=== PATIENT | male | born 1960 | race Caucasian/White ===

== ENCOUNTER 2019-02-04 05:06 | Inpatient (IN) | payer BC, OTHER ==
[~2019-02-04] VITALS: Ht 172.7 cm; Wt 110.6 kg
[2019-02-04] MEDS ORDERED: ACETAMINOPHEN 500 MG TAB PO ONE (05:15)
[2019-02-04 05:38] LABS: Basophils # (auto) 0.1 uL; Basophils % (auto) 1.1 % (0.0-2.0); Eosinophils # (auto) 0 uL; Eosinophils % (auto) 0.3 % (0.0-7.0); Hematocrit 44.5 % (41.0-53.0); Hemoglobin 15.5 g/dL (13.5-17.5); Lymphocytes # (auto) 0.4 uL; Lymphocytes % (auto) 8.5 % (10.0-50.0); Mean Corpuscular Hemoglobin 32.7 pg (28.0-32.0); Mean Corpuscular Hgb Conc. 34.7 g/dL (32.0-36.0); Mean Corpuscular Volume 94.2 fL (80.0-100.0); Monocytes # (auto) 0.1 uL; Monocytes % (auto) 1.1 % (0.0-12.0); Neutrophils # (auto) 4.5 uL; Nucleated Red Blood Cells % 0.1 %; Platelet Count (auto) 263 10^3/uL (140-450); Red Blood Cells 4.72 10^6/uL (4.5-5.90); Red Cell Distribution Width 13.3 % (11.8-14.3); White Blood Cell 5.1 10^3/uL (4.4-10.8)
[2019-02-04 05:51] LABS: Alanine Aminotransferase 27 U/L (16-61); Albumin 3.9 g/dL (3.4-5.0); Anion Gap 13 (5-15); Aspartate Aminotransferase 16 U/L (15-37); BUN/Creatinine Ratio 11.9; Blood Urea Nitrogen 19 mg/dL (7-18); Calcium 9.1 mg/dL (8.5-10.1); Carbon Dioxide 23 mmol/L (21-32); Chloride 100 mmol/L (98-107); GFR African American 57 mL/min; GFR Non-African American 47 mL/min; Glucose 122 mg/dL (74-106); Lipase 142 U/L (73-393); Potassium 3.3 mmol/L (3.5-5.1); Sodium 136 mmol/L (136-145)
[2019-02-04 05:57] LABS: Alkaline Phosphatase 101 U/L (45-117); Bilirubin, Total 1.5 mg/dL (0.2-1.0); Total Protein 7.8 g/dL (6.4-8.2)
[2019-02-04 05:59] LABS: INR 0.92 (0.9-1.15); Partial Thromboplastin Time 20.7 sec (23.64-32.05)
[2019-02-04] MEDS ORDERED: SODIUM CHLORIDE 0.9% 1,000 ML IVB ONE (06:25)
[2019-02-04] MEDS ORDERED: PROMETHAZINE HCL 25 MG/ML 1ML IV PRN (06:30)
[2019-02-04] MEDS ORDERED: HYDROmorphone HCL 2 MG/ML VL IV ONE ×2 (06:30→14:45)
[2019-02-04] MEDS ORDERED: cefTRIAXone 1GM/50ML D5W 50 ML IV ONE (06:30)
[2019-02-04] MEDS ORDERED: PROMETHAZINE HCL 25 MG/ML 1ML ONE (06:32)
[2019-02-04] MEDS ORDERED: ceFAZolin 1GM/50ML 50 ML IV ONE (11:08)
[2019-02-04] MEDS ORDERED: POVIDONE IODINE 10 % TOPICAL OINT 30GM TOP ONE (11:51)
[2019-02-04] MEDS ORDERED: SUCCINYLCHOLINE CHLORIDE 20 MG/ML 10ML VIAL IV ONE (11:53)
[2019-02-04] MEDS ORDERED: MEPERIDINE HCL (25 MG/ML) 1ML VIAL ONE (11:55)
[2019-02-04] MEDS ORDERED: fentaNYL CITRATE 100 MCG/2 ML VL ONE (11:55)
[2019-02-04] MEDS ORDERED: MIDAZOLAM HCL 1MG/1ML-2 ML VIAL ONE (11:55)
[2019-02-04] MEDS ORDERED: KETOROLAC TROMETH 60MG/2ML VIAL ONE (12:29)
[2019-02-04] MEDS ORDERED: DexAMETHasone SOD PHOS 10MG/1ML VIAL INJ ONE (12:29)
[2019-02-04] MEDS ORDERED: GLYCOPYRROLATE 0.2 MG/ML 1ML VIAL ONE (12:29)
[2019-02-04] MEDS ORDERED: NEOSTIGMINE 1 MG/ML INJ (10mg/10ML VIAL) ONE (12:29)
[2019-02-04] MEDS ORDERED: PROPOFOL 10 MG/ML 20 ML IV ONE (12:29)
[2019-02-04] MEDS ORDERED: LABETALOL HCL 5 MG/ML 4ML SYRINGE IV PRN (12:30)
[2019-02-04] MEDS ORDERED: KETOROLAC TROMETH 30 MG/ML 1ML VIAL IV ONE (12:30)
[2019-02-04] MEDS ORDERED: ePHEDrine SULFATE 50 MG/ML AMP IV PRN (12:30)
[2019-02-04] MEDS ORDERED: MORPHINE SULFATE 4 MG/ML SYR/VIAL IV PRN (12:30)
[2019-02-04] MEDS ORDERED: HYDROmorphone HCL 2 MG/ML VL IV PRN (12:30)
[2019-02-04] MEDS ORDERED: ONDANSETRON HCL 4 MG/2 ML VIAL IV ONE (12:30)
[2019-02-04] MEDS ORDERED: MIDAZOLAM HCL 1MG/1ML-2 ML VIAL IV PRN (12:30)
[2019-02-04] MEDS ORDERED: PHENYLEPHRINE HCL 10 MG/ML VL ONE (12:47)
[2019-02-04] MEDS ORDERED: MORPHINE SULFATE 4 MG/ML SYR/VIAL IV ONE (14:00)
[2019-02-04] MEDS ORDERED: D5W/SOD CHL 0.45%/KCL 20MEQ 1,000 ML IV ONE (14:45)
[2019-02-04 16:00] VITALS: BP 96/88
--- NOTE | 2019-02-04 16:00 | NUR ---
MS admit from OR S/P LAPARASCOPIC APPENDECTOMY DEJA RAMOS admitted to MS after SBAR received. Patient oriented to SONAL KELLER, primary RN, unit, room, bed, and unit policies regarding patient care and visiting hours. Patient weighed by bed scale and encouraged to call if they need something. All questions and concerns addressed, patient verbalized understanding.
[2019-02-04 16:04] VITALS: BP 96/68
[2019-02-04] MEDS ORDERED: TRIA75TA55 PO (16:12)
[2019-02-04] MEDS ORDERED: LOSA-49 PO (16:12)
--- NOTE | 2019-02-04 17:00 | NUR ---
Dr. Cruz at bedside.
[2019-02-04] MEDS: ONDANSETRON HCL 4 MG/2 ML VIAL IV SCH ×2 (18:00→22:47)
[2019-02-04] MEDS: D5W/SOD CHL 0.45%/KCL 20MEQ 1,000 ML IV SCH (18:19)
--- NOTE | 2019-02-04 19:49 | NUR ---
OPENING NOTES REPORT RECEIVED BY DAYSHIFT NURSE. PT IS A/OX4 WITH NO S/S OF DISTRESS NOR PAIN. NO S/S OF SOB. PT HAS 3 INCISION MIDLINE OF ABDOMEN, DRESSING IS CLEAN, DRY, AND INTACT. ABDOMEN BINDER IN PLACE.1 ITALO DRAIN BED DRAINING SEROSANGUINEOUS FLUID. BRAKES ARE LOCKED AND BED IS IN LOWEST POSITION. CALL LIGHT IS WITH IN REACH AND SIDE RAILS ARE UP X2. HOB IS 30 DEGREES. DISCUSSED POC WITH PATIENT AND PT VERBALIZED UNDERSTANDING.
[2019-02-04] MEDS: HYDROcodone-ACET 5/325MG TAB PO PRN (20:55)
[2019-02-04] MEDS: ceFAZolin 1GM/50ML 50 ML IV SCH (20:55)
[2019-02-04 22:00] VITALS: BP 100/71
[2019-02-04] MEDS: metroNIDAZOLE 500MG/100ML 100 ML IV SCH (22:47)
[2019-02-04] MEDS: MORPHINE SULF INJ 2 MG/ML SYRINGE 1ML IV PRN (22:48)
[2019-02-05] MEDS: ONDANSETRON HCL 4 MG/2 ML VIAL IV SCH ×6 (01:39→22:00)
--- NOTE | 2019-02-05 03:00 | NUR ---
IV FLUIDS IV FLUIDS SCHEDULED FOR 0300 WILL BE DELAYED DUE TO PRIOR BAG NOT FINISHED INFUSING. WILL COMMENCE SOON CURRENT BAG FINISHES INFUSING.
[2019-02-05] MEDS: ceFAZolin 1GM/50ML 50 ML IV SCH ×3 (04:56→21:24)
[2019-02-05] MEDS: D5W/SOD CHL 0.45%/KCL 20MEQ 1,000 ML IV SCH ×2 (04:56→13:00)
[2019-02-05 05:00] VITALS: BP 100/59
--- NOTE | 2019-02-05 05:03 | NUR ---
URINE SAMPLE URINE SAMPLE SENT TO LAB.
[2019-02-05 05:41] LABS: Urine Bacteria NONE SEEN /hpf (None Seen); Urine Blood Negative /uL (Negative); Urine Specific Gravity 1.022 (1.001-1.035); Urine WBC 1 /hpf (0 - 3)
[2019-02-05] MEDS: metroNIDAZOLE 500MG/100ML 100 ML IV SCH ×3 (06:01→22:09)
[2019-02-05] MEDS: MORPHINE SULF INJ 2 MG/ML SYRINGE 1ML IV PRN ×2 (06:39→22:09)
[2019-02-05 06:50] LABS: Basophils # (auto) 0 uL; Basophils % (auto) 0.1 % (0.0-2.0); Eosinophils # (auto) 0 uL; Hematocrit 36.6 % (41.0-53.0); Hemoglobin 12.5 g/dL (13.5-17.5); Lymphocytes # (auto) 0.7 uL; Lymphocytes % (auto) 4.6 % (10.0-50.0); Mean Corpuscular Hemoglobin 32.6 pg (28.0-32.0); Mean Corpuscular Hgb Conc. 34.1 g/dL (32.0-36.0); Mean Corpuscular Volume 95.4 fL (80.0-100.0); Monocytes # (auto) 0.9 uL; Monocytes % (auto) 6.1 % (0.0-12.0); Neutrophils # (auto) 13.8 uL; Neutrophils % (auto) 89.2 % (37.0-80.0); Platelet Count (auto) 205 10^3/uL (140-450); Red Blood Cells 3.84 10^6/uL (4.5-5.90); Red Cell Distribution Width 13.1 % (11.8-14.3); White Blood Cell 15.4 10^3/uL (4.4-10.8)
[2019-02-05 07:07] LABS: Albumin 2.8 g/dL (3.4-5.0); BUN/Creatinine Ratio 16.4; Potassium 3.8 mmol/L (3.5-5.1)
[2019-02-05 07:10] LABS: Bilirubin, Total 0.5 mg/dL (0.2-1.0); Total Protein 6.2 g/dL (6.4-8.2)
--- NOTE | 2019-02-05 07:24 | NUR ---
CLOSING NOTES ENDORSED CARE TO DAY SHIFT NURSEMEY.
--- NOTE | 2019-02-05 07:30 | NUR ---
Report received. Patient is sitting up in bed. Patient is alert and oriented. Patient has no complaints at this time. three small dressings noted to abdomen, ITALO drain noted. Abdominal binder in place. No S/S distress. Call light in reach. Will continue to monitor.
[2019-02-05 08:57] VITALS: BP 99/63
[2019-02-05] MEDS: HYDROcodone-ACET 5/325MG TAB PO PRN (09:06)
[2019-02-05] MEDS ORDERED: ESOMEPRAZOLE 40 MG/5ml VIAL INJ IV SCH (10:00)
[2019-02-05 11:57] VITALS: BP 111/58
[2019-02-05 15:57] VITALS: BP 108/63
[2019-02-05 22:01] VITALS: BP 120/73
[2019-02-06] MEDS: ONDANSETRON HCL 4 MG/2 ML VIAL IV SCH ×4 (02:00→14:00)
[2019-02-06] MEDS: D5W/SOD CHL 0.45%/KCL 20MEQ 1,000 ML IV SCH ×2 (02:11→10:18)
[2019-02-06] MEDS: ceFAZolin 1GM/50ML 50 ML IV SCH ×2 (04:54→13:00)
[2019-02-06 04:55] VITALS: BP 107/71
[2019-02-06] MEDS: metroNIDAZOLE 500MG/100ML 100 ML IV SCH ×2 (05:53→13:11)
[2019-02-06 06:54] LABS: Basophils # (auto) 0 uL; Basophils % (auto) 0.3 % (0.0-2.0); Eosinophils # (auto) 0.2 uL; Hematocrit 39.7 % (41.0-53.0); Hemoglobin 13.4 g/dL (13.5-17.5); Lymphocytes # (auto) 1.2 uL; Lymphocytes % (auto) 12.3 % (10.0-50.0); Mean Corpuscular Hemoglobin 32.2 pg (28.0-32.0); Mean Corpuscular Hgb Conc. 33.8 g/dL (32.0-36.0); Mean Corpuscular Volume 95.4 fL (80.0-100.0); Monocytes # (auto) 0.8 uL; Neutrophils # (auto) 7.3 uL; Neutrophils % (auto) 77.4 % (37.0-80.0); Platelet Count (auto) 214 10^3/uL (140-450); Red Blood Cells 4.16 10^6/uL (4.5-5.90); Red Cell Distribution Width 13.2 % (11.8-14.3); White Blood Cell 9.4 10^3/uL (4.4-10.8)
[2019-02-06 07:16] LABS: BUN/Creatinine Ratio 12.8; Calcium 8.1 mg/dL (8.5-10.1); Potassium 3.6 mmol/L (3.5-5.1)
--- NOTE | 2019-02-06 07:26 | NUR ---
CLOSING NOTES ENDORSED CARE TO DAY SHIFT NURSE, ROSARIO.
--- NOTE | 2019-02-06 08:00 | NUR ---
PT RESTING IN BED, NO DISTRESS NOTED. 2 ML SEROSANGUINEOUS DRAINAGE TAKEN FROM ITALO DRAIN. 3 MIDLINE ABDOMINAL INCISIONS NOTED WITH MODERATE SEROSANGUINEOUS DRAINAGE ON DRESSINGS, SURROUNDING SKIN IN TACT AND NORMAL COLOR, NO SWELLING OR ERYTHEMA NOTED. PT REPORTS 3/10 PAIN ONLY WHEN HE MOVES, ABDOMINAL BINDER IN PLACE, WILL CONTINUE TO MONITOR.
[2019-02-06 09:36] VITALS: BP 114/72
[2019-02-06] MEDS ORDERED: PANTOPRAZOLE 40 MG TAB PO SCH (10:00)
--- NOTE | 2019-02-06 11:00 | NUR ---
PT REPORTS IV LEAKING. ASSESSED SITE, LEAKAGE NOTED. NO EDEMA OR ERYTHEMA NOTED, PT REPORTS NO PAIN AT SITE. PT REPORTS HE MAY BE GOING HOME TODAY AND DOES NOT WANT ANOTHER IV. FLUIDS STOPPED, WILL DC IV.
--- NOTE | 2019-02-06 12:28 | NUR ---
CALLED PBX AND WAS TRANSFERRED TO [facility], NO ANSWER, LEFT MESSAGE ASKING IF MD WOULD LIKE PT TO DISCHARGE HOME WITH ITALO DRAIN. AWAITING CALL BACK.
--- NOTE | 2019-02-06 12:49 | NUR ---
SPOKE WITH DR BARAJAS, PT IS TO BE DISCHARGED TODAY. MD REPORTS TO SEND PT HOME WITH ITALO DRAIN AND MAKE FOLLOW UP GRAZYNA WITH DR DOBBS IN ONE WEEK. PT UPDATED ON POC.
[2019-02-06 13:04] VITALS: BP 120/75
--- NOTE | 2019-02-06 15:37 | NUR ---
PT EDUCATED ON S/S OF INFECTION INCLUDING FEVER, SWELLING AND REDNESS AROUND INCISION SITES. PT TAUGHT WOUND CARE AND HOW TO TAKE CARE OF INCISIONS AND ITALO DRAIN. PT PROVIDED WITH 4X4 GAUZE PADS AND TEGADERM TO COVER INCISIONS WHEN CHANGING BANDAGES. PT DEMONSTRATED HOW TO EMPTY OWN ITALO DRAIN. PT NOTIFIED HE HAS APPOINMENT ALREADY SCHEDULED WITH DR DOBBS AND GIVEN APPOINTMENT INFORMATION.
--- NOTE | 2019-02-06 15:40 | NUR ---
Discharge instructions given as ordered. Encourage to follow up with PMD and Dr. Combs as instructed. All questions and concerns addressed. Patient verbalized understanding. Medication reconciliation form completed and copy given to patient. IV removed with catheter intact, pressure dressing applied. Patient taken to vehicle via wheelchair with all personal belongings, accompanied by staff and family member. No distress noted at time of departure.
== END 2019-02-06 16:02 | disposition home or self-care (01) | DRG 338 ==
LOC: ER 05:06 → TELE-WESTW 13:36
PROVIDERS: ADMIT Internal Medicine; ATTEND Internal Medicine
PROC: 0DTJ4ZZ Resection of Appendix, Percutaneous Endoscopic Approach (ICD-10-PCS; principal; 2019-02-04 11:58)
DX: K35.32 Acute appendicitis with perforation, localized peritonitis, and gangrene, without abscess (principal); N17.0 Acute kidney failure with tubular necrosis; K56.41 Fecal impaction; E87.6 Hypokalemia; E66.01 Morbid (severe) obesity due to excess calories; N18.3 Chronic kidney disease, stage 3 (moderate); I12.9 Hypertensive chronic kidney disease with stage 1 through stage 4 chronic kidney disease, or unspecified chronic kidney disease; K76.0 Fatty (change of) liver, not elsewhere classified; Z68.37 Body mass index [BMI] 37.0-37.9, adult
CPT/HCPCS: 36415; 71045; 74176; 80048; 80053; 81001; 83690; 83735; 84484; 85025; 85610; 85730; 86850; 86900; 86901; 87040; 93005; 96365; 96375; G0378; J0330; J0690; J0696; J1100; J1885; J2250; J2405; J2704; J3490

== ENCOUNTER 2021-12-21 14:14 | Emergency (ER) | payer BC, OTHER ==
[~2021-12-21] VITALS: Ht 172.7 cm; Wt 96.6 kg
[~2021-12-21 14:14] MED LIST: LOSA-39 PO; TRIA75TA55 PO
[2021-12-21 15:25] LABS: Basophils # (auto) 0.1 10 ^3/uL (0-0.2); Basophils % (auto) 0.6 % (0.0-2.0); Eosinophils # (auto) 0.1 10 ^3/uL (0-0.8); Eosinophils % (auto) 0.6 % (0.0-7.0); Hemoglobin 14.2 g/dL (13.5-17.5); Lymphocytes # (auto) 1.2 10 ^3/uL (0.4-5.4); Mean Corpuscular Hemoglobin 31.6 pg (28.0-32.0); Mean Corpuscular Hgb Conc. 33.8 g/dL (32.0-36.0); Mean Corpuscular Volume 93.5 fL (80.0-100.0); Monocytes # (auto) 0.5 10 ^3/uL (0-1.3); Monocytes % (auto) 4.2 % (0.0-12.0); Neutrophils # (auto) 10.4 10 ^3/uL (1.6-8.6); Neutrophils % (auto) 84.6 % (37.0-80.0); Nucleated Red Blood Cells % 0.1 %; Red Cell Distribution Width 13.2 % (11.8-14.3); White Blood Cell 12.3 10^3/uL (4.4-10.8)
[2021-12-21 15:50] LABS: Albumin 3.8 g/dL (3.4-5.0); Anion Gap 6 (5-15); Blood Alcohol < 3.0 mg/dL (0-5); Blood Urea Nitrogen 20 mg/dL (7-18); Calcium 8.8 mg/dL (8.5-10.1); Carbon Dioxide 26 mmol/L (21-32); Chloride 109 mmol/L (98-107); GFR African American 65 mL/min; GFR Non-African American 53 mL/min; Glucose 139 mg/dL (74-106); Potassium 4.3 mmol/L (3.5-5.1); Sodium 141 mmol/L (136-145)
[2021-12-21 15:59] LABS: Alanine Aminotransferase 30 U/L (16-61); Alkaline Phosphatase 86 U/L (45-117); Aspartate Aminotransferase 20 U/L (15-37); Bilirubin, Total 0.4 mg/dL (0.2-1.0); Total Protein 6.8 g/dL (6.4-8.2)
[2021-12-21 20:27] LABS: Alcohol, Urine < 3.0 mg/dL (0-10); Amphetamine Screen, Urine NEGATIVE (NEGATIVE); Barbiturate Scree,Urine NEGATIVE (NEGATIVE); Benzodiazephine Screen, Urine NEGATIVE (NEGATIVE); Cannabinoid Screen, Urine NEGATIVE (NEGATIVE); Cocaine Screen, Urine NEGATIVE (NEGATIVE); Opiate Scree,Urine NEGATIVE (NEGATIVE); Phencyclidine Screen, Urine NEGATIVE (NEGATIVE)
[2021-12-21 21:00] VITALS: BP 116/67
== END 2021-12-21 21:22 | disposition home or self-care (01) ==
LOC: ER 14:14 → EDBD 14:14 → EDUNIT# 14:14 → ER 21:22
DX: S03.43XA Sprain of jaw, bilateral, initial encounter (principal); G40.909 Epilepsy, unspecified, not intractable, without status epilepticus; I10 Essential (primary) hypertension; W18.39XA Other fall on same level, initial encounter; Y93.89 Activity, other specified; Y92.89 Other specified places as the place of occurrence of the external cause; Y99.8 Other external cause status
CPT/HCPCS: 36415; 70450; 70486; 71045; 72125; 80053; 80307; 80320; 84484; 85025; 93005; 96365; 99285; J1953; J7060

== ENCOUNTER 2025-02-06 12:58 | Emergency (ER) | payer OTHER ==
[~2025-02-06] VITALS: Ht 177.8 cm; Wt 84.1 kg
[~2025-02-06 12:58] MED LIST changes: -LOSA-39 PO; +LOSA-535 PO
[2025-02-06 13:15] VITALS: PULSE 88; RESP 16; O2SAT 96
[2025-02-06 14:57] LABS: Alanine Aminotransferase 34 U/L (7-40); Albumin 4.4 g/dL (3.2-4.8); Alkaline Phosphatase 95 U/L (46-116); Anion Gap 10 (5-15); Aspartate Aminotransferase 24 U/L (13-40); BUN/Creatinine Ratio 8.3 (10.0-20.0); Bilirubin, Total 0.4 mg/dL (0.2-1.0); Blood Urea Nitrogen 12 mg/dL (9-23); Calcium 10.3 mg/dL (8.7-10.4); Carbon Dioxide 26 mmol/L (20-31); Glucose 103 mg/dL (74-106); Sodium 143 mmol/L (136-145); Total Protein 6.9 g/dL (5.7-8.2)
[2025-02-06 15:01] LABS: Chloride 107 mmol/L (98-107); Potassium 3.4 mmol/L (3.5-5.1)
--- NOTE | 2025-02-06 15:18 | ED.PDOC ---
HPI (NEURO) HPI Comments 64y M who presents to the ED via EMS for chief complaint of seizure. Per EMS, pt had tonic clonic seizure while sitting on the cough at home witnessed by spouse and EMS was called to the scene. Pt had oral trauma after seizure with bleeding controlled upon EMS arrival. Pt has noted history of epilepsy and is complaint with his keppra which he daily 2x daily. Pt last seizure was 1 years prior. Pt is followed by neurologist at [facility]. Pt in the ED, is a0x0x4 and denies any other symptoms at this time. Chief Complaint: Seizure Time Seen by MD: 15:15 Primary Care Provider: AMARI Reviewed Notes: Consulting Actuary Notes, Medications, Allergies Information Source: Patient, Emergency Med Personnel Mode of Arrival: EMS Brought in by: EMS Past Medical History PAST MEDICAL HISTORY: High Lipids, HTN, Seizures Surgical History: Denies all surgeries Family History Family History: Reviewed,noncontributory to illness Social History Smoker: Non-Smoker Alcohol: Occasionally Drugs: Denies Drug Use Lives In: Home Constitutional: denies: chills, diaphoresis, fatigue, fever, malaise, sweats, weakness, others EENTM: denies: blurred vision, double vision, ear bleeding, ear discharge, ear drainage, ear pain, ear ringing, eye pain, eye redness, hearing loss, mouth pain, mouth swelling, nasal discharge, nose bleeding, nose congestion, nose pain, photophobia, tearing, throat pain, throat swelling, voice changes, others Respiratory: denies: cough, hemoptysis, orthopnea, SOB at rest, shortness of breath, SOB with excertion, stridor, wheezing, others Cardiovascular: denies: chest pain, dizzy spells, diaphoresis, Dyspnea on exertion, edema, irregular heart beat, left arm pain, lightheadedness, palpitations, PND, syncope, others Gastrointestinal: denies: abdomen distended, abdominal pain, blood streaked bowels, constipated, diarrhea, dysphagia, difficulty swallowing, hematemesis, melena, nausea, poor appetite, poor fluid intake, rectal bleeding, rectal pain, vomiting, others Genitourinary: denies: burning, dysuria, flank pain, frequency, hematuria, incontinence, penile discharge, penile sore, pain, testicle pain, testicle swelling, urgency, others Neurological: reports: seizure; denies: dizziness, fainting, headache, left sided numbness, left sided weakness, numbness, paresthesia, pre-existing deficit, right sided numbness, right sided weakness, speech problems, tingling, tremors, weakness, others Musculoskeletal: denies: back pain, gout, joint pain, joint swelling, muscle pain, muscle stiffness, neck pain, others Integumetry: denies: bruises, change in color, change in hair/nails, dryness, laceration, lesions, lumps, rash, wounds, others Allergic/Immunocompromised: denies: Difficulty Healing, Frequent Infections, Hives, Itching, others Hematologic/Lymphatic: denies: anemia, blood clots, easy bleeding, easy bruising, swollen glands, others Endocrine: denies: excessive hunger, excessive sweating, excessive thirst, excessive urination, flushing, intolerance to cold, intolerance to heat, unexplained weight gain, unexplained weight loss, others Psychiatric: denies: anxiety, bipolar disorder, depression, hopeless, panic disorder, schizophrenia, sleepless, suicidal, others All Other Systems: Reviewed and Negative Physical Exam General Appearance: Other (tongue laceration, bleeding controlled) HEENT: Normal ENT Inspection, Pharynx Normal, TMs Normal Neck: Full Range of Motion, Non-Tender, Normal, Normal Inspection Respiratory: Chest Non-Tender, Lungs Clear, No Accessory Muscle Use, No Respiratory Distress, Normal Breath Sounds Cardiovascular: No Edema, No JVD, No Murmur, No Gallop, Normal Peripheral Pulses, Regular Rate/Rhythm Breast Exam: Deferred Gastrointestinal: No Organomegaly, Non Tender, No Pulsatile Mass, Normal Bowel Sounds, Soft Genitalia: Deferred Pelvic: Deferred Rectal: Deferred Extremities: No calf tenderness, Normal capillary refill, Normal inspection, Normal range of motion, Non-tender, No pedal edema Musculoskeletal : Apperance: Normal Neurologic: Alert, tack puller II-XII nml as Tested, No Motor Deficits, Normal Affect, Normal Mood, No Sensory Deficits Cerebellar Function: Normal Reflexes: Normal Skin: Dry, Normal Color, Warm Lymphatic: No Adenopathy Was a procedure done? Was a procedure done?: No Differential Diagnosis (SZ) Seizure: Hyperventilation, Psychogenic Seizure, Anticonvulsant Withdrawl, Hypocalcemia, Hypoglycemia, Hyponatremia, Hypoxemia, Idiopathic, Epilepsy-Break Through, Epilepsy-Status X-Ray, Labs, Meds, VS Vital Signs Date Time Temp Pulse Resp B/P (MAP) Pulse Ox O2 Delivery O2 Flow Rate FiO2 02/06/25 16:00 98.6 74 16 140/82 (101) 96 98.6 02/06/25 14:09 88 02/06/25 13:26 98.8 82 16 120/78 (92) 96 98.8 02/06/25 13:15 98.7 88 16 123/56 (78) 88 98.7 02/06/25 13:15 88 16 96 Nasal Cannula* 2 28 Lab Test 02/06/25 14:26 Range/Units White Blood Count 15.3 H 4.4-10.8 10^3/uL Red Blood Count 4.94 4.5-5.90 10^6/uL Hemoglobin 15.8 13.5-17.5 g/dL Hematocrit 47.1 41.0-53.0 % Mean Corpuscular Volume 95.4 80.0-100.0 fL Mean Corpuscular Hemoglobin 32.0 28.0-32.0 pg Mean Corpuscular Hemoglobin Concent 33.5 32.0-36.0 g/dL Red Cell Distribution Width 13.3 11.8-14.3 % Platelet Count 267 140-450 10^3/uL Mean Platelet Volume 8.3 6.9-10.8 fL Neutrophils (%) (Auto) 87.0 H 37.0-80.0 % Lymphocytes (%) (Auto) 5.9 L 10.0-50.0 % Monocytes (%) (Auto) 6.4 0.0-12.0 % Eosinophils (%) (Auto) 0.3 0.0-7.0 % Basophils (%) (Auto) 0.4 0.0-2.0 % Neutrophils # (Auto) 13.3 H 1.6-8.6 10 ^3/uL Lymphocytes # (Auto) 0.9 0.4-5.4 10 ^3/uL Monocytes # (Auto) 1.0 0-1.3 10 ^3/uL Eosinophils # (Auto) 0 0-0.8 10 ^3/uL Basophils # (Auto) 0.1 0-0.2 10 ^3/uL Nucleated Red Blood Cells 0.1 % Sodium Level 143 136-145 mmol/L Potassium Level 3.4 L 3.5-5.1 mmol/L Chloride Level 107 98-107 mmol/L Carbon Dioxide Level 26 20-31 mmol/L Anion Gap 10 5-15 Blood Urea Nitrogen 12 9-23 mg/dL Creatinine 1.45 H 0.700-1.30 mg/dL Glomerular Filtration Rate Calc 54 >90 mL/min BUN/Creatinine Ratio 8.3 L 10.0-20.0 Serum Glucose 103 74-106 mg/dL Calcium Level 10.3 8.7-10.4 mg/dL Total Bilirubin 0.4 0.2-1.0 mg/dL Aspartate Amino Transferase (AST) 24 13-40 U/L Alanine Aminotransferase (ALT) 34 7-40 U/L Alkaline Phosphatase 95 46-116 U/L Total Protein 6.9 5.7-8.2 g/dL Albumin 4.4 3.2-4.8 g/dL Current Medications Medications (Trade) Dose Ordered Sig/Dejah Route Start Time Stop Time Status Last Admin Levetiracetam 100 ml @ 400 mls/hr ONCE ONCE IV 02/06/25 15:45 02/06/25 15:59 DC 02/06/25 15:49 Time of 1ST Reevaluation: 15:45 Reevaluation 1ST: Unchanged Time of 2ND Reevaluation: 18:23 Reevaluation 2ND: Resolved Patient Education/Counseling: Diagnosis, Treatment, Prognosis, Need For Follow Up Family Education/Counseling: Diagnosis, Treatment, Prognosis, Need For Follow Up Additional Information Previous visits reviewed: The following tests were ordered, and results were reviewed by me: ekg x1, cmp Additional Information was gathered from interviewing the following independent historians: EMS I reviewed and agreed with the following test results read by other providers: none I discussed treatment and results with medical personnel and: patient Comprehensive systems review obtained and negative except for what is stated in the HPI. pt has chronic recurrent seizures and has about one seizure annually. he had another typical seizure at the same time of the year. he denies any headaches or injuries. his electorlytes and BS are unremarkable. pt is stable for discharge to follow up with his neurologist Departure 1 Departure Time of Disposition: 18:24 Impression: Primary Impression: Seizure Additional Impression: Breakthrough seizure Disposition: HOME / SELF CARE / HOMELESS Condition: Good Discharged With: Self, Relative Critical Care Note Critical Care Time?: No Stability Stability form required: No Heart Score Heart Score: Heart Score Response (Comments) Value History N/A 0 EKG N/A 0 Age N/A 0 Risk Factors N/A 0 Troponin N/A 0 Total 0 I personally scribed for CARLYN BYNUM MD ([email or web address]) on 02/06/25 at 15:18. Electronically submitted by Benny Remy ([facility]). CARLYN BYNUM MD February 06, 2025 15:18
[2025-02-06] MEDS: levETIRAcetam 1000 mg/100ml 100 ML IV ONE (15:49)
[2025-02-06 15:54] LABS: Basophils # (auto) 0.1 10 ^3/uL (0-0.2); Basophils % (auto) 0.4 % (0.0-2.0); Eosinophils # (auto) 0 10 ^3/uL (0-0.8); Eosinophils % (auto) 0.3 % (0.0-7.0); Hematocrit 47.1 % (41.0-53.0); Hemoglobin 15.8 g/dL (13.5-17.5); Lymphocytes # (auto) 0.9 10 ^3/uL (0.4-5.4); Lymphocytes % (auto) 5.9 % (10.0-50.0); Mean Corpuscular Hgb Conc. 33.5 g/dL (32.0-36.0); Mean Corpuscular Volume 95.4 fL (80.0-100.0); Monocytes % (auto) 6.4 % (0.0-12.0); Neutrophils # (auto) 13.3 10 ^3/uL (1.6-8.6); Nucleated Red Blood Cells % 0.1 %; Platelet Count (auto) 267 10^3/uL (140-450); Red Blood Cells 4.94 10^6/uL (4.5-5.90); Red Cell Distribution Width 13.3 % (11.8-14.3); White Blood Cell 15.3 10^3/uL (4.4-10.8)
[2025-02-06 16:00] VITALS: TEMP 98.6
[2025-02-06 18:29] VITALS: BP 130/80; PULSE 72; RESP 16; O2SAT 97
--- NOTE | 2025-02-06 18:58 | ECG ---
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
== END 2025-02-06 18:43 | disposition home or self-care (01) ==
LOC: ER 12:58 → EDBD 12:58 → ER 18:43
DX: G40.909 Epilepsy, unspecified, not intractable, without status epilepticus (principal); I10 Essential (primary) hypertension; E78.5 Hyperlipidemia, unspecified; I25.2 Old myocardial infarction
CPT/HCPCS: 36415; 80053; 85025; 93005; 96365; 99285; J1953